=== PATIENT | female | born 1980 | race American Indian/Alaskan Native ===

== ENCOUNTER 2018-11-21 05:52 | Day surgery (SDC) | payer MEDICAID ==
[~2018-11-21 05:52] MED LIST: LACTATED RINGERS 1,000 ML IV SCH
[2018-11-21] MEDS ORDERED: VERSED IV NR (06:00)
[2018-11-21] MEDS ORDERED: NEURONTIN PO NR (06:00)
[2018-11-21] MEDS ORDERED: DILAUDID IV PRN (06:58)
--- NOTE | 2018-11-21 06:59 | Anesthesia Consultation ---
Anesthesia Consult and Med Hx Date of service: 11/21/18 - Airway Anesthetic Teeth Evaluation: Good ROM Head & Neck: Adequate Mental/Hyoid Distance: Adequate Mallampati Class: Class II Intubation Access Assessment: Probably Good - Pulmonary Exam CTA: Yes - Cardiac Exam Cardiac Exam: RRR - Pre-Operative Health Status ASA Pre-Surgery Classification: ASA1 Proposed Anesthetic Plan: General - Pulmonary Hx Smoking: No Hx Asthma: Yes (childhood) Hx Respiratory Symptoms: No - Cardiovascular System Hx Hypertension: No Hx Heart Attack/AMI: No - Central Nervous System Hx Seizures: No CVA: No - Gastrointestinal Hx Gastroesophageal Reflux Disease: No - Endocrine Hx Renal Disease: No Hx Liver Disease: No Hx Insulin Dependent Diabetes: No Hx Non-Insulin Dependent Diabetes: No Hx Thyroid Disease: No - Additional Comments Anesthesia Medical History Comments: No hx anesthetic complications.
--- NOTE | 2018-11-21 06:59 | Anesthesia Day of Surgery ---
Anesthesia Day of Surgery - Day of Surgery Patient Examined: Yes Patient H&P Reviewed: Yes Patient is NPO: Yes
[2018-11-21] MEDS ORDERED: MARCAINE 0.5% INFILTRATI ONE ×2 (07:36→09:15)
[2018-11-21] MEDS ORDERED: DIPRIVAN 10 MG/ML IV ONE (07:53)
[2018-11-21] MEDS ORDERED: DILAUDID ONE (07:53)
[2018-11-21] MEDS ORDERED: XYLOCAINE MPF 2% ONE (07:54)
--- NOTE | 2018-11-21 08:17 | Short Stay Summary ---
Short Stay Documentation Date of service: 11/21/18 Narrative H&P: Pt is a 38yo BF LMP 11/01/18 presents for surgical evaluation and treatment of a persistent Right ovarian cyst. Pelvic u/s showed a 5.1 x 4.9 x 4.6cm right ovarian cyst. She has been having pelvic pain x several months and now desires surgical removal. CA125 - WNL. - History Principal diagnosis: Right ovarian cyst H&P: obtained from office Past Medical History: other (asthma) Past Surgical History: Other (Laprsocopic ovarian cystectomy) Social history: no significant social history, - Allergies and Medications Current Medications: Allergies No Known Allergies Allergy (Verified 11/20/18 10:09) Home Medications Medication Instructions Recorded Confirmed Last Taken Type Ibuprofen [Motrin 800 MG tab] 800 mg PO Q8H PRN 11/16/18 11/21/18 11/20/18 20:00 History Active Medications Celecoxib (Celebrex) 200 mg PO PREOP NR Stop: 11/21/18 12:00 Last Admin: 11/21/18 06:38 Dose: 200 mg Documented by: Hydromorphone HCl (Dilaudid) 0.5 mg IV Q10MIN PRN PRN Reason: Pain , Severe (7-10) Stop: 11/21/18 20:00 Lactated Ringer's (Lactated Ringers) 1,000 mls @ 100 mls/hr IV DIRECT ROBBIE Last Admin: 11/21/18 06:42 Dose: 100 mls/hr Documented by: - Physical exam General appearance: mild distress Integumentary: no rash HEENT: Atraumatic Lungs: Clear to auscultation Breasts: deferred Heart: Regular rate Gastrointestinal: normal Female Genitourinary: deferred Rectal Exam: deferred Extremities: no ischemia, No edema Neurological: Normal gait, Normal speech - Brief post op/procedure progress note Date of procedure: 11/21/18 Pre-op diagnosis: 1. Pelvic pain 2. Right ovarian cyst Post-op diagnosis: same Procedure: Laparoscopic right ovarian cystectomy Anesthesia: GETA Findings: Normal uterus. A large right ovarian cyst. A normal left ovary and left fallopian tube. Normal appendix. Surgeon: HUSSAIN LATHAM Estimated blood loss: minimal Pathology: list (Right ovarian cyst; Ovarian cyst fluid) Specimen disposition: to lab Condition: stable - Hospital course Hospital course: Unremarkable. - Disposition Condition at discharge: Good Disposition: DC-01 TO HOME OR SELFCARE - Discharge Diagnoses (1) Right ovarian cyst Status: Resolved Short Stay Discharge Plan Activity: no restrictions Diet: regular Wound: keep clean and dry Follow up with: YAMILE ROBLES MD [Primary Care Provider] - 7 Days HUSSAIN LATHAM MD [Staff Physician] - 14 Days Prescriptions: HYDROcodone/APAP 5-325 [[place] 5/325] 1 each PO Q6HR PRN #30 tablet PRN Reason: Pain
[2018-11-21] MEDS ORDERED: ZOFRAN ONE (09:00)
[2018-11-21] MEDS ORDERED: ANCEF/STERILE WATER 2 GM/20 ML 2 GM/20 ML SYRINGE IV NR (09:00)
[2018-11-21] MEDS ORDERED: DECADRON ONE (09:00)
[2018-11-21] MEDS ORDERED: NACL 0.9% IR ONE ×2 (09:16)
[2018-11-21] MEDS ORDERED: ZEMURON IV ONE (09:30)
[2018-11-21] MEDS ORDERED: ROBINUL ONE (09:39)
[2018-11-21] MEDS ORDERED: BLOXIVERZ ONE (09:39)
[2018-11-21] MEDS ORDERED: LACTATED RINGERS 1,000 ML ONE (10:02)
[2018-11-21] MEDS ORDERED: NORCO 5/325 PO PRN (10:29)
[2018-11-21 10:48] VITALS: BP 119/76
--- NOTE | 2018-11-21 12:26 | Operative Report ---
Operative Report Operative Report: Date of procedure: 11/21/2018 Pre-operative diagnosis: 1. Pelvic pain 2. Right ovarian cyst Post-operative diagnosis: Same Procedure name(s): Laparoscopic right ovarian cystectomy Surgeon: Dr. Mathieu Borges Demonstrator Sales: None Anesthesia: Gen. endotracheal intubation EBL: Minimal less than 10 mL's Findings: A normal uterus with a large right ovarian cyst. Normal left ovary and left fallopian tube. Normal appendix. Procedure: After the patient was correctly identified, she was prepped and draped in the usual sterile fashion and placed in the dorsolithotomy position. Next the bladder was emptied using a straight catheter, and the speculum was placed in the vaginal vault. The anterior lip of the cervix was grasped using single-tooth tenaculum, and the uterine manipulator was then placed. The tenaculum and speculum were then removed. Attention was then turned to the abdomen where periumbilical incision was made using the skin knife, and the Optiview trocar was inserted under direct visualization. After adequate amount of abdominal insufflation, visualization of the pelvic organs found the uterus to be normal, with a large right ovarian cystic mass. A suprapubic and the right lateral incision was made through which 5 mm trochars were placed in order to aid in manipulation of the pelvic organs. The right ovarian cyst was incised and possibly 70 mL's of clear fluid was drained and sent for cytology. The entire cyst was excised using tripolar cautery, placed in an Endopouch and sent to pathology. It appeared that the ovarian cyst also contained the right fallopian tube. Copious amounts of irrigation was then performed, and the Tisseel Sealant was sprayed across this ovarian cystectomy site. At this point the procedure was considered complete. All instruments removed from the abdomen. The abdomen was deflated, and a periumbilical incision was closed using 0 Vicryl suture in a [id number] configuration of the fascia followed by 4 Monocryl suture in a sub-cuticular fashion on the skin. The suprapubic and right lateral incisions were closed in similar fashion. Each incision was infiltrated using 0.5% Marcaine Solution. The uterine manipulator was removed. The patient tolerated the procedure well and was transferred to recovery in stable condition.
== END 2018-11-21 12:00 | disposition home or self-care (01) ==
LOC: OR 05:52
PROVIDERS: ATTEND Obstetrics & Gynecology
DX: N83.201 Unspecified ovarian cyst, right side (principal); J45.909 Unspecified asthma, uncomplicated; G43.909 Migraine, unspecified, not intractable, without status migrainosus; Z72.89 Other problems related to lifestyle; Z98.890 Other specified postprocedural states; Z79.899 Other long term (current) drug therapy
CPT/HCPCS: 58662; 81025; 82803; 88112; 88305; A4217; C9250; J1100; J1170; J2250; J2405; J2704; J2710; J7120